=== PATIENT | female | born 1970 | race Caucasian/White ===

== ENCOUNTER 2022-06-11 22:51 | Emergency (ER) | payer OTHER ==
[~2022-06-11] VITALS: Ht 170.2 cm; Wt 73.9 kg
[2022-06-11] MEDS ORDERED: ASPIRIN 81 MG TAB.CHEW PO ONE (23:15)
[2022-06-11] MEDS ORDERED: LORAZEPAM 0.5 MG TABLET PO ONE (23:15)
--- NOTE | 2022-06-11 23:30 | NUR ---
Patient is a/ox4, NAD noted. denies SOB. Patient is able to walk to the restroom with steady gait
[2022-06-11] MEDS ORDERED: LORAZEPAM 0.5 MG TABLET ONE (23:32)
[2022-06-11] MEDS ORDERED: ASPIRIN 81 MG TAB.CHEW ONE (23:32)
[2022-06-11 23:33] LABS: HEMATOCRIT 36.5 % (31.2-41.9); MEAN CORPUSCULAR HEMOGLOBIN 28.1 uug (24.7-32.8); MEAN CORPUSCULAR VOLUME 82.6 fL (75.5-95.3); PLATELET COUNT (AUTO) 279 K/uL (179-408)
[2022-06-11 23:36] LABS: CARBON DIOXIDE 29 mmol/L (21-32); CHLORIDE 103 mmol/L (98-107); GLUCOSE 121 mg/dL (74-106); POTASSIUM 3.8 mmol/L (3.5-5.1); UREA NITROGEN, BLOOD 12 mg/dL (7-18)
[2022-06-11 23:45] LABS: ALANINE AMINOTRANSFERASE 26 U/L (14-59); ALKALINE PHOSPHATASE 131 U/L (50-136); ASPARTATE AMINOTRANSFERASE 11 U/L (15-37); BILIRUBIN,DIRECT 0.1 mg/dL (0.0-0.2); BILIRUBIN,TOTAL 0.4 mg/dL (0.2-1.0); TOTAL PROTEIN, SERUM 8.1 g/dL (6.4-8.2)
[2022-06-12 00:07] LABS: MAGNESIUM 2.1 mg/dL (1.8-2.4)
--- NOTE | 2022-06-12 01:42 | NUR ---
Patient's daughter at bedside
[2022-06-12] MEDS ORDERED: FURO-152 PO (01:55)
--- NOTE | 2022-06-12 02:23 | NUR ---
Patient discharged to home in stable condition. Written and verbal after care instructions given. Patient verbalizes understanding of instructions. Stressed follow up or return to ER for worsening s/s. Patient is a/ox4, NAD noted. Patient is able to walk with steady gait. Patient is accompanied by her daughter
[2022-06-12 02:24] VITALS: BP 135/87
== END 2022-06-12 02:25 | disposition home or self-care (01) ==
LOC: ER 22:51
DX: I50.9 Heart failure, unspecified (principal); R20.2 Paresthesia of skin; Z85.3 Personal history of malignant neoplasm of breast; Z92.21 Personal history of antineoplastic chemotherapy; Z87.891 Personal history of nicotine dependence; R03.0 Elevated blood-pressure reading, without diagnosis of hypertension
CPT/HCPCS: 36415; 71045; 83735; 84484; 85025; 93005; A4663